=== PATIENT | female | born 1955 | race Caucasian/White ===

== ENCOUNTER 2019-10-11 14:15 | Outpatient (CLI) | payer MEDICARE, OTHER, SELFPAY ==
--- NOTE | 2019-10-11 14:25 | MM_ITS ---
WS: [id number] BILATERAL SCREENING DIGITAL MAMMOGRAM WITH CAD HISTORY: SCREENING COMPARISON: 06/23/2018, 01/21/2017 Bilateral CC and MLO views submitted. Computer aided detection analyzed. Breast composition: There are scattered areas of fibroglandular density. No suspicious masses, microc alcifications or architectural distortion. Long-term stability of a nodule in the anterior LEFT breas t. There are additional scattered asymmetries in the anterior breast. Benign calcifications bilateral ly. MM/[id number] IMPRESSION: BI-RADS: 2-Benign FOLLOW UP: 1 Year Follow-up
== END 2019-10-11 14:16 | disposition home or self-care (01) ==
LOC: RADSHAW 14:21
PROVIDERS: PCP Family Medicine; Visit Provider Family Medicine
DX: Z12.31 Encounter for screening mammogram for malignant neoplasm of breast (principal)
CPT/HCPCS: 77067

== ENCOUNTER 2020-10-15 15:09 | Outpatient (CLI) | payer MEDICARE, OTHER, SELFPAY ==
--- NOTE | 2020-10-15 15:17 | MM_ITS ---
WS: [id number] BILATERAL DIGITAL SCREENING MAMMOGRAPHY WITH CAD CLINICAL INFORMATION: SCREENING HISTORY: Screening mammogram. No current complaints. COMPARISON: October 11, 2019 TECHNIQUE: Bilateral CC and MLO views. FINDINGS: The breasts are composed of heterogeneous fibroglandular density tissue, which can limit the detectio n of small underlying mass lesions. No suspicious mass, asymmetry, calcifications, or architectural d istortion. No evidence of malignancy. Punctate and lucent centered calcifications. MM/[id number] IMPRESSION: BI-RADS: 2-Benign FOLLOW UP: 1 Year Follow-up Recommend return to annual screening mammography.
== END 2020-10-15 15:10 | disposition home or self-care (01) ==
LOC: RADSHAW 15:14
PROVIDERS: PCP Family Medicine; Visit Provider Family Medicine
DX: Z12.31 Encounter for screening mammogram for malignant neoplasm of breast (principal)
CPT/HCPCS: 77067

== ENCOUNTER 2021-05-06 14:33 | Outpatient (CLI) | payer MEDICARE, SELFPAY ==
--- NOTE | 2021-05-06 14:39 | XR_ITS ---
WS: [id number] Left knee, 3 views, 05/06/2021 Clinical Data: BILATERAL KNEE PAIN Comparison: None. Findings: No fractures or dislocations are seen. The joint spaces are normal. The patella is intact. The soft t issues are unremarkable. XR/XR knee LT 3V* [id number] Impression: Negative left knee. Kellgren-Mandeep Classification: grade 0 (none): definite absence of x-ray brandon nges of osteoarthritis
--- NOTE | 2021-05-06 14:39 | XR_ITS ---
WS: [id number] Right knee, 3 views, 05/06/2021 Clinical Data: Right KNEE PAIN Comparison: None. Findings: No fractures or dislocations are seen. There is lateral joint compartment narrowing. There is a small spur of the medial femoral condyle. There is a small spur of the posterior superior patella.. The pa tella is intact. The soft tissues are unremarkable. 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 Kellgren-Mandeep Classification: grade 2 (minimal): definite osteophytes and p ossible joint space narrowing
== END 2021-05-06 14:34 | disposition home or self-care (01) ==
LOC: RAD 14:37
PROVIDERS: PCP Family Medicine; Visit Provider Family Medicine
DX: M25.562 Pain in left knee (principal); M17.11 Unilateral primary osteoarthritis, right knee
CPT/HCPCS: 73562

== ENCOUNTER 2022-03-30 15:10 | Outpatient (CLI) | payer MEDICARE, SELFPAY ==
--- NOTE | 2022-03-30 15:16 | MM_ITS ---
WS: [id number] BILATERAL 3D TOMOSYNTHESIS DIGITAL SCREENING MAMMOGRAPHY WITH CAD CLINICAL INFORMATION: SCREENING HISTORY: Screening mammogram. No current complaints. COMPARISON: 2019, 2018, 2016. TECHNIQUE: Bilateral CC and MLO views. FINDINGS: Scattered fibroglandular densities bilaterally. No suspicious focal mass, asymmetry, calcifications, or architectural distortion. No evidence of malignancy. A few incidental punctate calcifications. Pravin g-term stability of what nodule LEFT breast subareolar stable since 2017. Dense breast tissue upper o uter LEFT breast is unchanged. MM/[place] [id number] IMPRESSION: BI-RADS: 2-Benign FOLLOW UP: 1 Year Follow-up Recommend return to annual screening mammography.
== END 2022-03-30 15:11 | disposition home or self-care (01) ==
LOC: RAD 15:12
PROVIDERS: PCP Family Medicine; Visit Provider Family Medicine
DX: Z12.31 Encounter for screening mammogram for malignant neoplasm of breast (principal)
CPT/HCPCS: 77063; 77067

== ENCOUNTER → 2022-04-01 09:27 | Outpatient (BNVA) | payer MEDICARE, SELFPAY | PROVIDERS: PCP Family Medicine; Visit Provider Surgery | DX: Z12.11 Encounter for screening for malignant neoplasm of colon (principal) | CPT/HCPCS: 99024 ==

== ENCOUNTER 2022-04-06 13:57 | Outpatient (CLI) | payer MEDICARE, SELFPAY ==
--- NOTE | 2022-04-06 14:01 | CT_ITS ---
WS: [id number] CT NECK TECHNIQUE: Noncontrast CT of the neck with coronal and sagittal reformatted images. CLINICAL INFORMATION: GENERALIZED ENLARGED LYMPH NODES COMPARISON: None. DLP: 159.[address] scans at [facility] use at least one of these dose optimization techniques: automated e xposure control; mA and/or kV adjustment per patient size (includes targeted exams where dose is matc hed to clinical indication); or iterative reconstruction. FINDINGS: Palpable markers overlying the LEFT posterior scalp. No evidence of suspicious underlying mass or les ion. A few underlying veins and and normal scalp lymph nodes. No suspicious underlying mass. Mastoid air cells are well aerated. Normal posterior nasopharynx. Normal parapharyngeal fat. Medial d eviation of the RIGHT vocal cord suspicious for vocal cord paralysis. Recommend further evaluation wi endoscopy. Subglottic airway is patent. Lung apices appear normal. No cervical lymphadenopathy. Normal visualize d submandibular glands. Parotid glands incompletely visualized. Mild spondylitic changes cervical spi ne. CT/CT neck wo con [id number] IMPRESSION: 1. No pathologic abnormalities deep to the palpable markers in the LEFT internal control analyst ior scalp. 2. No cervical lymphadenopathy. 3. Medial deviation of the RIGHT vocal cord suspicious for focal cord paralysi s. Recommend further evaluation with endoscopy. 4. No other suspicious findings.
== END 2022-04-06 13:58 | disposition home or self-care (01) ==
LOC: RAD 13:57
PROVIDERS: PCP Family Medicine; Visit Provider Family Medicine
DX: R59.1 Generalized enlarged lymph nodes (principal)
CPT/HCPCS: 70490

== ENCOUNTER 2022-06-11 05:25 | Day surgery (SDC) | payer MEDICARE, SELFPAY ==
[2022-06-09 08:48] VITALS: BMI 32.3
[2022-06-11 06:07] VITALS: BP 128/88; PULSE 71; RESP 18; TEMP 36.2; O2SAT 97
[2022-06-11] MEDS: sodium chloride 0.9% 1,000 ML 30 ML IV (06:12)
--- NOTE | 2022-06-11 06:49 | ANES.PREANE2 ---
Pre-Anesthetic Assessment Height/Weight: Height 1.57 m Weight 80.286 kg Temp Pulse Resp BP Pulse Ox O2 Del Method 97.1 F L 71 18 128/88 97 06/11/22 06:07 06/11/22 06:07 06/11/22 06:07 06/11/22 06:07 06/11/22 06:07 06/11/22 06:07 Preop Diagnosis: screening Operation Date: 06/11/22 07:00 Proposed Procedures p Colonoscopy 44975 Z12.11(Not Applicable) - Marcio Farmer DO Familial anesthetic complications: none Was Beta Virgil taken within 24 hours: N/A Was Clonidine taken within 24 hours: N/A Last intake: Intake Last Liquid Date 06/10/22 Last Liquid Time 21:00 Last Solid Date 06/09/22 Last Solid Time 21:00 Last Intake: 21:00 Social No alcohol and No tobacco Exam alert, oriented x 3, clear to auscultation bilaterally and regular rate & rhythm Airway Submandibular: within normal limits Cervical ROM: within normal limits Mallampati: Class I Dentition: full Pulmonary Cough (allergies) CV/HEM None reported Chronic Renal Insufficiency Hepatic None reported GI None reported Metabolic None reported Musc/skel None reported Neuropsych Anxiety and Depression Anesthetic Plan ASA status: 2 Anesthesia: MAC Medications/Allergies Home Medications Medication Instructions Recorded Confirmed Last Taken Type alprazolam 0.5 mg tablet (Xanax) 0.5 mg PO DAILY 04/01/22 06/11/22 06/11/22 History cetirizine 10 mg tablet (Zyrtec) 10 mg PO DAILY PRN Allergy Symptoms 04/01/22 06/11/22 06/10/22 History cyclobenzaprine 10 mg tablet 10 mg PO TID PRN Muscle Spasm 04/01/22 06/11/22 06/10/22 History Allergies Allergy/AdvReac Type Severity Reaction Status Date / Time No Known Allergies Allergy Unverified 06/09/22 08:45 Current Medications Generic Name Dose Route Start Last Admin Trade Name Freq PRN Reason Stop Dose Admin Sodium Chloride 1,000 mls @ 30 mls/hr 06/11/22 06:00 06/11/22 06:12 Sodium Chloride 0.9% IV 06/12/22 05:59 30 mls/hr .Q24H JOLENE Administration Data Anesthesia Cardiac Studies: No Data to Display
--- NOTE | 2022-06-11 06:58 | PM.HP ---
Providers/Chief Complaint Primary Care Provider: Denae Yi MD Chief Complaint: encounter for screening History of Present Illness Luz Whitlock is a 67 year old female who presents for a screening colonoscopy. She had a colonoscopy 15 years ago that was within normal limits. She denies any problems with her bowels, abdominal pain or family history of colon cancer. Review of Systems General: Reports: 10 or more systems reviewed and unremarkable except in HPI and below Medications/Allergies Home Medications Medication Instructions Recorded Confirmed Last Taken Type alprazolam 0.5 mg tablet (Xanax) 0.5 mg PO DAILY 04/01/22 06/11/22 06/11/22 History cetirizine 10 mg tablet (Zyrtec) 10 mg PO DAILY PRN Allergy Symptoms 04/01/22 06/11/22 06/10/22 History cyclobenzaprine 10 mg tablet 10 mg PO TID PRN Muscle Spasm 04/01/22 06/11/22 06/10/22 History Allergies Allergy/AdvReac Type Severity Reaction Status Date / Time No Known Allergies Allergy Unverified 06/09/22 08:45 Vitals/I&O/Wt Last Vital Signs Temp 97.1 F L 06/11/22 06:07 Pulse 71 06/11/22 06:07 Resp 18 06/11/22 06:07 BP 128/88 06/11/22 06:07 Pulse Ox 97 06/11/22 06:07 O2 Del Method 06/11/22 06:07 Weight last 48 hrs Weight 177 lb Physical Exam Narrative: General : Patient is well developed , no acute distress, oriented x3 Head : Normal cephalic, a-traumatic. Ears : Pinnae and external canal are normal. Hearing is normal. Eyes : PERRLA, Sclera and injection are normal. No conjunctival discharge. Nose : Mucous membranes are without erythema. Throat : buccal mucosa is normal, gums are without significant recession or hypertrophy. Lungs : Equal chest rise bilaterally, no use of accessory muscles, trachea is midline. Cor : Rate and rhythm are normal. Abdomen : Soft, ND, NT, no g/r/m Extremities : No edema, no cyanosis or clubbing, dorsalis pedis pulses are present bilaterally, non-tender to palpation of calves. Upper extremities are normal bilaterally. Back : non-tender to palpation, no CVA tenderness. Neuro : CN II - XII intact, Upper and lower extremities have equal and full strength A&P Assessment and plan (1) Colon cancer screening: Plan Colonoscopy The risks and benefits of the procedure, including bleeding, infection, intestinal perforation requiring surgery, missed lesion were explained to the patient. The patient is understanding of the risks and wishes to proceed. Attestations Medical Necessity Statement*: Home Coding Level of Care Code Acute Code for Chg Fwd Diagnoses Colon cancer screening Z12.11
[2022-06-11 07:17] VITALS: BP 117/75; PULSE 60; RESP 16; TEMP 36.3; O2SAT 96
[2022-06-11 07:28] VITALS: BP 120/77; PULSE 57; RESP 16; O2SAT 96
--- NOTE | 2022-06-11 13:57 | ANE.PACU2 ---
Inpatient post-anesthesia follow up: Airway intact: Yes Vital signs: Temperature 97.3 F Pulse Rate 57 Respiratory Rate 16 Blood Pressure 120/77 Pulse Oximetry 96 Oxygen Delivery Me thod Room Air Oxygen Flow Rate Fraction of Inspir ed Oxygen Hydration adequate: Yes Nausea and vomiting: No Pain level: 1 Mental status: Baseline
== END 2022-06-11 07:57 | disposition home or self-care (01) ==
PROVIDERS: PCP Family Medicine; Visit Provider Surgery
PROC: 0DJD8ZZ Inspection of Lower Intestinal Tract, Via Natural or Artificial Opening Endoscopic (ICD-10-PCS; CPT 45378; principal; 2022-06-11 07:00)
DX: Z12.11 Encounter for screening for malignant neoplasm of colon (principal); K57.30 Diverticulosis of large intestine without perforation or abscess without bleeding; K64.8 Other hemorrhoids
CPT/HCPCS: G0121; J2704; J7030

== ENCOUNTER 2022-11-16 10:42 | Outpatient (CLI) | payer MEDICARE, SELFPAY ==
--- NOTE | 2022-11-16 11:28 | XRR_ITS ---
PROCEDURE INFORMATION: Exam: XR Right Shoulder Exam date and time: 11/16/2022 11:39 AM Age: 67 years old Clinical indication: Injury or trauma; Fall; Blunt trauma (contusions or hematomas); Shoulder; Right; Injury date: 7 months ago; Additional info: Pain in R shoulder TECHNIQUE: Imaging protocol: Radiologic exam of the right shoulder. Views: 2 or more views. COMPARISON: CT neck con [id number] 04/06/2022 2:19 PM FINDINGS: Bones/joints: No fracture or dislocation. There is [id number] degenerative changes of the right glenohumeral and acromioclavicular joints, manifested by joint space narrowing and periarticular osteophytes. Soft tissues: Normal. XR/XR shoulder RT min 2V* [id number] IMPRESSION: 1. No fracture or dislocation. 2. [id number] osteoarthrosis.
--- NOTE | 2022-11-16 11:28 | XRR_ITS ---
PROCEDURE INFORMATION: Exam: XR Right Scapula Exam date and time: 11/16/2022 11:39 AM Age: 67 years old Clinical indication: Injury or trauma; Fall; Blunt trauma (contusions or hematomas); Shoulder; Right; Injury date: 7 months ago; Additional info: R shoulder pain TECHNIQUE: Imaging protocol: Radiologic exam of the right scapula. Complete exam. COMPARISON: CT neck wo con [id number] 04/06/2022 2:19 PM FINDINGS: Bones/joints: No fracture or dislocation. There is mild degenerative changes of the right glenohumeral and acromioclavicular joints, manifested by joint space narrowing and periarticular osteophytes. Degenerative changes of the spine noted. Soft tissues: Normal. XR/[place] [id number] IMPRESSION: 1. No fracture or dislocation. 2. Mild osteoarthrosis.
== END 2022-11-16 10:43 | disposition home or self-care (01) ==
PROVIDERS: PCP Family Medicine; Visit Provider Family Medicine
DX: M19.011 Primary osteoarthritis, right shoulder (principal)
CPT/HCPCS: 73010; 73030

== ENCOUNTER 2023-04-14 14:51 | Outpatient (CLI) | payer MEDICARE, SELFPAY ==
--- NOTE | 2023-04-14 14:55 | MM_ITS ---
WS: [id number] Bilateral screening 3D tomosynthesis digital mammogram, 04/14/2023 Clinical Data: SCREENING Comparison: 03/30/2022, 10/15/2020, 10/11/2019, 06/23/2018, 01/21/2017, 10/03/2015, 02/07/2014, 10/19/2012, , 08/31/2010. Findings: The breast parenchymal pattern shows fibroglandular tissue. No spiculated masses or clustered calcifi cations are seen. There are no secondary signs of carcinoma. Impression: 1. Negative bilateral mammogram unchanged. 2. Recommend annual screening mammograms. MM/[place] [id number] BIRADS: 1-Negative FOLLOW UP: 1 Year Follow-up The CAD load checker was used.
== END 2023-04-14 14:52 | disposition home or self-care (01) ==
LOC: RAD 14:52
PROVIDERS: PCP Family Medicine; Visit Provider Family Medicine
DX: Z12.31 Encounter for screening mammogram for malignant neoplasm of breast (principal)
CPT/HCPCS: 77063; 77067

== ENCOUNTER → 2023-11-15 12:30 | Outpatient (CLI) | payer MEDICARE, SELFPAY ==
--- NOTE | 2023-11-15 12:32 | XR_ITS ---
WS: [id number] SCREENING DEXA SCAN [facility] CLINICAL INFORMATION: ASYMPTOMATIC MENOPAUSAL STATE COMPARISON: None. FINDINGS: The L1-L4 bone mineral density measures 1.124 g/cm2. This corresponds to a T score score of -0.5 and Z score of 0.7. Left femoral neck bone mineral density measures 0.862 g/cm2. This corresponds to a T score of -1.2 an d Z score of -0.1. Right femoral neck bone mineral density measures 0.860 g/cm2. This corresponds to a T score -1.2of an d Z score of -0.1. Mean femoral neck bone mineral density measures 0.861 g/cm2. This corresponds to a T score of -1.2 an d Z score of -0.1. XR/XR DEXA axial skeleton* [id number] IMPRESSION: Normal bone mineralization lumbar spine. Osteopenia femoral necks. Patient's FRAX calculated 10 year probability for major osteoporotic fracture i s 11.9% and osteoporotic hip fracture is 2.4%.
== END | disposition home or self-care (01) ==
LOC: RAD 12:29
PROVIDERS: PCP Family Medicine; Visit Provider Family Medicine
DX: Z13.820 Encounter for screening for osteoporosis (principal); Z78.0 Asymptomatic menopausal state; M85.80 Other specified disorders of bone density and structure, unspecified site
CPT/HCPCS: 77080

== ENCOUNTER 2024-07-25 15:25 | Outpatient (CLI) | payer MEDICARE, SELFPAY ==
--- NOTE | 2024-07-25 15:31 | MM_ITS ---
WS: [id number] BILATERAL 3D TOMOSYNTHESIS DIGITAL SCREENING MAMMOGRAPHY WITH CAD CLINICAL INFORMATION: SCREEN HISTORY: Screening mammogram. No current complaints. COMPARISON: 2022 TECHNIQUE: Bilateral CC and MLO views. FINDINGS: Scattered fibroglandular densities bilaterally. No suspicious focal mass, asymmetry, calcifications, or architectural distortion. No evidence of malignancy. Incidental punctate calcifications. Stable parenchymal nodularity bilaterally. MM/MM scr tomosynthesis [id number] IMPRESSION: DENSITY: There are scattered areas of fibroglandular density. BI-RADS: 2 - Benign. FOLLOW UP: 1 Year Follow-up Recommend return to annual screening mammography.
== END 2024-07-25 15:26 | disposition home or self-care (01) ==
PROVIDERS: PCP Family Medicine; Visit Provider Family Medicine
DX: Z12.31 Encounter for screening mammogram for malignant neoplasm of breast (principal); R92.323 Mammographic fibroglandular density, bilateral breasts; R92.1 Mammographic calcification found on diagnostic imaging of breast; N64.89 Other specified disorders of breast
CPT/HCPCS: 77063; 77067